=== PATIENT | male | born 1975 | race Caucasian/White ===

== ENCOUNTER 2022-09-20 10:27 | Observation (INO) ==
[2022-09-20] MEDS ORDERED: SODIUM CHLORIDE 0.9% 1000ML 1,000 ML IV ONE ×2 (10:53→12:08)
--- NOTE | 2022-09-20 10:53 | Emergency Department Note ---
Impression & Plan Seizure, Hypoxia ED Provider Note NAME: ROSANNA GUERRERO AGE: 46 SEX: M : 1975 ARRIVES VIA: Ambulance INFORMANT: Patient, EMS ED PROVIDER(S): José Miguel Chaney DO CHIEF COMPLAINT: Seizure HPI: Patient is a 46-year-old male who presents to the [facility] yesterday. He had a 6-minute episode of tonic-clonic seizure. He was given 2 mg of IM Ativan. Following this the seizure abated. He does have a history of epilepsy. He takes Keppra and he believes he has missed some doses of this. He is not too sure how many he missed. Notes he does have a headache. No neck pain. No chest pain or shortness of breath. No belly pain, nausea, vomiting, or diarrhea. He was brought in by EMS. History was obtained from nursing staff who spoke with EMS as well as the patient although he does not remember much. PAST MEDICAL HISTORY:See Below PAST SURGICAL HISTORY:See Below FAMILY HISTORY:See Below SOCIAL HISTORY:See Below HOME MEDICATIONS:See Below ALLERGIES:See Below VITALS:See Below PHYSICAL EXAMINATION: GENERAL: Sitting up in bed, sleeping on a nonrebreather but awakens to voice EYE EXAM: normal conjunctiva. PERRL and EOM's intact. OROPHARYNX: mucous membranes are moist NECK: supple, no nuchal rigidity, no adenopathy, non-tender LUNGS: Clear to auscultation. Normal chest wall mechanics HEART: no murmurs, S1 normal and S2 normal ABDOMEN: abdomen soft, non-tender, normo-active bowel sounds, no masses, no rebound or guarding. UPPER EXTREMITIES: upper extremities are grossly normal. LOWER EXTREMITIES: No pitting edema. NEURO EXAM: Normal sensorium, cranial nerves II-XII intact, normal speech, no weakness of arms, no weakness of legs. MEDICAL DECISION MAKING: Patient is a 46-year-old male who presents ER for above-stated complaint. IV was established blood work is obtained. External records were reviewed which were presented at bedside. Labs show no significant leukocytosis or anemia. BMP with LFTs bilirubin and troponin was negative. Lactate was initially elevated and trended down consistent with likely seizure as he did have a witnessed tonic-clonic episode which lasted for about 6 minutes. Abated with 2 mg IM of Ativan. Pro-Wan and lipase were normal. COVID was negative. He believes he has missed some doses of his seizure medications but is not 100% sure. Patient was given 2 g of Keppra. He did return to baseline. He was mildly hypoxic and we were able to titrate him off the nonrebreather down to 5 L via nasal cannula. He was slightly hypoxic in the upper 80s when awake and when sleeping he would dip down to the low 80s. EKG was nondiagnostic. CT head was negative. Patient was monitored closely discussed with the hospitalist for further evaluation management treatment. Do question aspiration. Triage Nursing notes reviewed. Limited review of prior medical records performed Vital Signs: reviewed and remarkable for no significant abnormalities Differential diagnosis: Differential diagnosis includes etiologies such as infection, hypoglycemia, electrolyte abnormalities, cardiac sources, intracerebral event, trauma, toxicologic, neurologic, as well as others were entertained. ER treatment provided: See below Diagnostics interpreted by me include EKG and cardiac monitoring as listed below: -Cardiac Monitoring: An order was placed for continuous cardiac monitoring. The monitor shows a rate of 90 with sinus rhythm. -ECG: Sinus rhythm rate 92 Normal axis No PVCs Septal Q waves -Laboratory studies:Interpreted by me as stated above in MDM and shown below. Imaging studies: Xrays: As interpreted by me: Portable AP upright 1 view of the chest shows no focal infiltrate CTs show: CT head was unremarkable Consultation(s): As described in MDM Procedures:none Critical Care: I have personally spent 31 minutes of critical care time in the direct management of this patient. This includes bedside care, interpretation of diagnostic studies, and testing, discussion with consultants, patient, and family members, and other required patient management activities. This 31 minutes is in excess of all separately billable procedures. Past Med/Surg History Medical History History of suicidal behavior MDD (major depressive disorder) Seizure Social History Smoking Status: Never smoker Feels Safe at Home: Yes Allergies Allergies Allergy/AdvReac Type Severity Reaction Status Date / Time attapulgite [From [place]] Allergy Unknown Unverified 09/20/22 12:47 grass pollen Allergy Unknown Unverified 09/20/22 12:47 Penicillins Allergy Unknown Unverified 09/20/22 12:47 strawberry Allergy Unknown Unverified 09/20/22 12:47 Home Meds Home Medications Medication Instructions Recorded Confirmed L.acidophilus-L.bulgar-B.bifid-S.thermoph 1 tab PO DAILY 09/20/22 09/20/22 1 billion cell-250 mg tablet (Radha-Bid) aripiprazole 15 mg tablet 15 mg PO DAILY 09/20/22 09/20/22 cholecalciferol (vitamin D3) 50 50 mcg PO BID 09/20/22 09/20/22 mcg (2,000 unit) capsule citalopram 40 mg tablet 40 mg PO DAILY 09/20/22 09/20/22 divalproex 500 mg tablet,extended 1,000 mg PO HS 09/20/22 09/20/22 release 24 hr fenofibrate 160 mg tablet 160 mg PO DAILY 09/20/22 09/20/22 fluticasone propionate 50 50 mcg intranasal DAILY 09/20/22 09/20/22 mcg/actuation nasal spray,suspension lacosamide 200 mg tablet 200 mg PO BID 09/20/22 09/20/22 levocarnitine 330 mg tablet 990 mg PO TID 09/20/22 09/20/22 levocetirizine 5 mg tablet 5 mg PO DAILY 09/20/22 09/20/22 lorazepam 0.5 mg tablet 0.5 mg PO BID 09/20/22 09/20/22 montelukast 10 mg tablet 10 mg PO DAILY 09/20/22 09/20/22 pravastatin 40 mg tablet 40 mg PO DAILY 09/20/22 09/20/22 quetiapine 400 mg tablet 400 mg PO DAILY 09/20/22 09/20/22 zonisamide 100 mg capsule 200 mg PO BID 09/20/22 09/20/22 Results & Data (ED) Vital Signs Vital Signs - 24 hr 09/20/22 10:35 09/20/22 10:35 09/20/22 11:08 Temperature 36.6 C Temperature Source Oral Pulse Rate 92 H Pulse Rate [Apical] 92 H Pulse Rate from SpO2 Sensor Respiratory Rate 20 20 Respiratory Effort / Characteristics Non-Labored Non-Labored Respiratory Depth Normal Normal Blood Pressure 129/86 Blood Pressure [Right Arm] 129/86 Blood Pressure Mean 100 Blood Pressure Mean [Right Arm] 100 Pulse Oximetry 96 96 94 Oxygen Delivery Method Room Air Room Air Non-rebreather Oxygen Flow Rate 15 Sepsis Recent Fever Within 48 Hours No Sepsis New/Unexplained Change in Mental Status N/A Sepsis Action Taken by Nursing No Action Required 09/20/22 11:16 09/20/22 12:13 09/20/22 11:45 Temperature Temperature Source Pulse Rate 100 H 87 Pulse Rate [Apical] Pulse Rate from SpO2 Sensor 87 Respiratory Rate 24 Respiratory Effort / Characteristics Respiratory Depth Blood Pressure 128/80 Blood Pressure [Right Arm] Blood Pressure Mean 96 Blood Pressure Mean [Right Arm] Pulse Oximetry 95 99 Oxygen Delivery Method Nasal Cannula Nasal Cannula Oxygen Flow Rate 6 6 Sepsis Recent Fever Within 48 Hours Sepsis New/Unexplained Change in Mental Status Sepsis Action Taken by Nursing 09/20/22 12:46 09/20/22 13:03 Temperature Temperature Source Pulse Rate 80 81 Pulse Rate [Apical] Pulse Rate from SpO2 Sensor 74 82 Respiratory Rate 23 23 Respiratory Effort / Characteristics Respiratory Depth Blood Pressure 122/89 124/86 Blood Pressure [Right Arm] Blood Pressure Mean 100 98 Blood Pressure Mean [Right Arm] Pulse Oximetry 96 99 Oxygen Delivery Method Nasal Cannula Nasal Cannula Oxygen Flow Rate 6 6 Sepsis Recent Fever Within 48 Hours Sepsis New/Unexplained Change in Mental Status Sepsis Action Taken by Nursing Laboratory Data 09/20/22 10:43 09/20/22 10:43 Lab Results 09/20/22 09/20/22 09/20/22 Range/Units 10:43 10:43 10:43 WBC 5.48 (4.8-10.8) K/ul RBC 5.51 (4.70-6.10) M/uL Hgb 16.9 (14.0-18.0) g/dl Hct 49.2 (42.0-52.0) % MCV 89.3 (80.0-100.0) fL MCH 30.7 (25.0-34.0) pg MCHC 34.3 (32.0-36.0) g/dL RDW Std Deviation 40.1 (36.4-46.3) fL RDW Coeff of Nabil 12.3 (11.5-14.5) % Plt Count 262 (130-400) K/uL MPV 9.2 L (9.4-12.4) fL Immature Gran % (Auto) 0.9 % Neut % (Auto) 60.3 % Lymph % (Auto) 28.5 % [place] % (Auto) 7.7 % Eos % (Auto) 1.5 % Baso % (Auto) 1.1 % Neut # (Auto) 3.31 (1.40-6.50) K/uL Lymph # (Auto) 1.56 (1.2-3.4) K/uL [place] # (Auto) 0.42 (0.11-0.59) K/uL Eos # (Auto) 0.08 (0-0.50) K/uL Baso # (Auto) 0.06 (0-0.2) K/uL Immature Gran # (Auto) 0.05 (0.01-0.20) K/uL Sodium 138 (136-145) mmol/L Potassium 3.6 (3.5-5.1) mmol/L Chloride 106 (98-107) mmol/L Carbon Dioxide 24 (21-32) mmol/L Anion Gap 8 (3-11) BUN 25 H (6-23) mg/dl Creatinine 1.25 (0.6-1.4) mg/dl Est Cr Clr Drug Dosing 82.5 ml/min Est GFR ( Amer) 79.5 ml/min Est GFR (Non-Af Amer) 68.6 ml/min BUN/Creatinine Ratio 20.0 (10-20) Glucose 144 H (70-99(Fasting)) mg/dl Lactate 3.3 H* (0.4-2.0) mmol/L Calcium 9.8 (8.6-10.3) mg/dl Total Bilirubin 0.5 (0.2-1.0) mg/dl AST 20 (13-39) U/L ALT 24 (7-52) U/L Alkaline Phosphatase 38 (34-104) U/L Troponin I High Sens (0-20) pg/ml Total Protein 7.3 (6.0-8.3) gm/dl Albumin 4.5 (3.4-5.0) gm/dl Globulin 2.8 (2.5-4.0) gm/dl Albumin/Globulin Ratio 1.6 (0.9-2) Lipase (11-82) U/L Procalcitonin (0-0.5) ng/ml SARS-CoV-2, RNA, NAAT (NEGATIVE) 09/20/22 09/20/22 09/20/22 Range/Units 10:43 10:43 11:07 WBC (4.8-10.8) K/ul RBC (4.70-6.10) M/uL Hgb (14.0-18.0) g/dl Hct (42.0-52.0) % MCV (80.0-100.0) fL MCH (25.0-34.0) pg MCHC (32.0-36.0) g/dL RDW Std Deviation (36.4-46.3) fL RDW Coeff of Nabil (11.5-14.5) % Plt Count (130-400) K/uL MPV (9.4-12.4) fL Immature Gran % (Auto) % Neut % (Auto) % Lymph % (Auto) % [place] % (Auto) % Eos % (Auto) % Baso % (Auto) % Neut # (Auto) (1.40-6.50) K/uL Lymph # (Auto) (1.2-3.4) K/uL [place] # (Auto) (0.11-0.59) K/uL Eos # (Auto) (0-0.50) K/uL Baso # (Auto) (0-0.2) K/uL Immature Gran # (Auto) (0.01-0.20) K/uL Sodium (136-145) mmol/L Potassium (3.5-5.1) mmol/L Chloride (98-107) mmol/L Carbon Dioxide (21-32) mmol/L Anion Gap (3-11) BUN (6-23) mg/dl Creatinine (0.6-1.4) mg/dl Est Cr Clr Drug Dosing ml/min Est GFR ( Amer) ml/min Est GFR (Non-Af Amer) ml/min BUN/Creatinine Ratio (10-20) Glucose (70-99(Fasting)) mg/dl Lactate (0.4-2.0) mmol/L Calcium (8.6-10.3) mg/dl Total Bilirubin (0.2-1.0) mg/dl AST (13-39) U/L ALT (7-52) U/L Alkaline Phosphatase (34-104) U/L Troponin I High Sens 5.2 (0-20) pg/ml Total Protein (6.0-8.3) gm/dl Albumin (3.4-5.0) gm/dl Globulin (2.5-4.0) gm/dl Albumin/Globulin Ratio (0.9-2) Lipase 46 (11-82) U/L Procalcitonin < 0.05 (0-0.5) ng/ml SARS-CoV-2, RNA, NAAT NEGATIVE (NEGATIVE) Administered Medications Lacosamide 200 mg/ Sodium (Chloride) 70 mls @ 140 mls/hr IV Q12H KASH Stop: 10/20/22 13:29 Last Infusion: 09/20/22 14:27 Dose: 0 mls/hr Documented By: Admin: 09/20/22 13:58 Dose: 140 mls/hr Documented By: JESSICA Discontinued Medications Sodium Chloride (Nss 1000ml) 1,000 mls @ 999 mls/hr IV .Q1H1M ONE Stop: 09/20/22 11:53 Last Infusion: 09/20/22 12:26 Dose: 0 mls/hr Documented By: Admin: 09/20/22 11:09 Dose: 999 mls/hr Documented By: JESSICA Sodium Chloride (Nss 1000ml) 1,000 mls @ 999 mls/hr IV .Q1H1M ONE Stop: 09/20/22 13:08 Last Infusion: 09/20/22 13:49 Dose: 0 mls/hr Documented By: Admin: 09/20/22 12:44 Dose: 999 mls/hr Documented By: JSESICA Levetiracetam 2,000 mg/ Sodium (Chloride) 270 mls @ 999 mls/hr IV NOW STA Stop: 09/20/22 12:24 Last Infusion: 09/20/22 13:04 Dose: 0 mls/hr Documented By: Admin: 09/20/22 12:43 Dose: 999 mls/hr Documented By: JESSICA Imaging Data Radiologist's Impression: Chest X-Ray 09/20/22 10:53 XR chest 1V portable CLINICAL HISTORY: Chest pain, nonspecific COMPARISON STUDY: No previous studies for comparison. FINDINGS: This study is mildly compromised given difficulty positioning. There is relative lucency of the left upper lung. This could be technical. Mild interstitial thickening within the the right lung is noted. Cardiac size is normal. There is no evidence for pulmonary edema. No pneumothorax or pleural effusion. IMPRESSION: Mild asymmetric interstitial thickening within the right lung. This may be technical. However, an infectious process or less likely asymmetric interstitial pulmonary edema could appear similar. ACT 112: Negative or not required by law. Electronically signed by: Dick Dyer M.D. 09/20/2022 11:[address] 09/20/22 10:53 CT OF THE HEAD WITHOUT CONTRAST CLINICAL HISTORY: Headache. COMPARISON STUDY: No previous studies for comparison. CT DOSE: 547.75 mGy.cm TECHNIQUE: Helical axial images of the head were obtained without IV contrast. Automated exposure control was utilized for the study. A dose lowering technique was utilized adhering to the principles of ALARA. FINDINGS: No acute intracranial hemorrhage, midline shift or mass effect is present. There is ossification along the falx. The ventricular system is unremarkable. There is possible wolff matter heterotopia along the occipital horns of the lateral ventricles. The basal cisterns are patent. No extra-axial collections are present. There are no findings to suggest acute dural sinus thrombosis or acute territorial infarct. No calvarial fracture is present. Left maxillary sinus mucous retention cyst. IMPRESSION: 1. No acute intracranial findings. 2. 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 ACT 112: Negative or not required by law. Electronically signed by: Dick Dyer M.D. 09/20/2022 11:56 AM Discharge Plan Visit Data Chief Complaint: Seizure ED Provider: José Miguel Chaney Discharge Problem: Seizure, Hypoxia Patient Disposition: Admitted As Inpatient Discharge Instructions Interventions: ED Discharge Assessment Last Done: 09/20/22 14:15
[2022-09-20 11:05] LABS: Basophils # (auto) 0.06 K/uL (0-0.2); Basophils % (auto) 1.1 %; Eosinophils # (auto) 0.08 K/uL (0-0.50); Eosinophils % (auto) 1.5 %; Hematocrit (blood only) 49.2 % (42.0-52.0); Hemoglobin 16.9 g/dl (14.0-18.0); Immature Granulocytes # (auto) 0.05 K/uL (0.01-0.20); Immature Granulocytes % (auto) 0.9 %; Lymphocytes # (auto) 1.56 K/uL (1.2-3.4); Lymphocytes % (auto) 28.5 %; Mean Corpuscular Hemoglobin 30.7 pg (25.0-34.0); Mean Corpuscular Hgb Conc 34.3 g/dL (32.0-36.0); Mean Corpuscular Volume 89.3 fL (80.0-100.0); Mean Platelet Volume 9.2 fL (9.4-12.4); Monocytes # (auto) 0.42 K/uL (0.11-0.59); Monocytes % (auto) 7.7 %; Neutrophils # (auto) 3.31 K/uL (1.40-6.50); Neutrophils % (auto) 60.3 %; Platelet Count 262 K/uL (130-400); RDW Coefficient of Variation 12.3 % (11.5-14.5); RDW Standard Deviation 40.1 fL (36.4-46.3); Red Blood Count 5.51 M/uL (4.70-6.10); White Blood Count 5.48 K/ul (4.8-10.8)
--- NOTE | 2022-09-20 11:17 | XRay Report ---
XR chest 1V portable CLINICAL HISTORY: Chest pain, nonspecific COMPARISON STUDY: No previous studies for comparison. FINDINGS: This study is mildly compromised given difficulty positioning. There is relative lucency of the left upper lung. This could be technical. Mild interstitial thickening within the the right lung is noted. Cardiac size is normal. There is no evidence for pulmonary edema. No pneumothorax or pleur al effusion. IMPRESSION: Mild asymmetric interstitial thickening within the right lung. This may be technical. [place], an infectious process or less likely asymmetric interstitial pulmonary edema could appear [place]. ACT 112: Negative or not required by law. Electronically signed by: Dick Dyer M.D. 09/20/2022 11:15 AM
[2022-09-20 11:27] LABS: Albumin Globulin Ratio 1.6 (0.9-2); Albumin Level 4.5 gm/dl (3.4-5.0); Bilirubin,Total 0.5 mg/dl (0.2-1.0); Calcium 9.8 mg/dl (8.6-10.3); Creatinine Clr Calc Pharmacy 82.5 ml/min; Est GFR (African American) 79.5 ml/min; Est GFR (Non-African American) 68.6 ml/min; Globulin 2.8 gm/dl (2.5-4.0); Potassium 3.6 mmol/L (3.5-5.1); Total Protein 7.3 gm/dl (6.0-8.3)
--- NOTE | 2022-09-20 11:58 | CT Scan Report ---
CT OF THE HEAD WITHOUT CONTRAST CLINICAL HISTORY: Headache. COMPARISON STUDY: No previous studies for comparison. CT DOSE: 547.75 mGy.cm TECHNIQUE: Helical axial images of the head were obtained without IV contrast. Automated exposure con trol was utilized for the study. A dose lowering technique was utilized adhering to the principles o f ALARA. FINDINGS: No acute intracranial hemorrhage, midline shift or mass effect is present. There is ossific ation along the falx. The ventricular system is unremarkable. There is possible wolff matter heterotop ia along the occipital horns of the lateral ventricles. The basal cisterns are patent. No extra-axial collections are present. There are no findings to suggest acute dural sinus thrombosis or acute terr itorial infarct. No calvarial fracture is present. Left maxillary sinus mucous retention cyst. IMPRESSION: 1. No acute intracranial findings. 2. 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 ACT 112: Negative or not required by law. Electronically signed by: Dick Dyer M.D. 09/20/2022 11:56 AM
[2022-09-20 12:16] LABS: Troponin I High Sensitivity 5.2 pg/ml (0-20)
--- NOTE | 2022-09-20 12:25 | History & Physical Report ---
Date of Service September 20, 2022 Assessment & Plan (1) Seizure: Plan: Seizure, acute with history of epilepsy Patient follows with [facility] neurolog[facility]. Records pending Medications reconciled as able with the [facility]. Patient recently with Vimpat increased to 200 mg twice daily, Zonegran 200 mg twice daily, and Depakote ER 1000 mg at bedtime. He arrived to their facility yesterday, had not taken meds since Tuesday but was only able to take Depakote in the evening Patient reports has had around a seizure a month more recently Patient was admitted to the [facility] for severe depression with suicidality, patient denies suicidality today. MDD management as otherwise noted Depakote level pending, Zonegran level pending We will resume Zonegran and Vimpat Initially loaded with Keppra in the ER. 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 Received 2 L of NSS in ER, will defer additional. If not tolerating p.o. by this even then add Plasma-Lyte 100 cc/h supplement. Pulmonary edema not noted on x-ray, no history of heart failure CThead: 1. No acute intracranial findings.2. 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 EKG: Normal sinus rhythm, QTc 452, no ST segment changes Given CT above evidence of deformity consistent with epilepsy. Will defer MRI and attempt to obtain records from [facility]. If continued seizures/breakthrough seizures then we will repeat imaging and consult neurology at that time. Otherwise will restart medications, obtain levels and follows for stability Acute hypoxic respiratory failure Reportedly no oxygen requirement Denies fever, chills, sweats, cough. Denies baseline lung disease ? Sedation in the setting of seizure/postictal state and Ativan administration CXR Mild asymmetric interstitial thickening within the right lung. This may be technical. However, an infectious process or less likely asymmetric interstitial pulmonary edema could appear similar. Pro-Wan pending. If persistent hypoxia, febrile, elevated procal or other concern for clinical pneumonia continues will start Rocephin for CAP Bipolar disorder, major depressive disorder, with suicidality Patient denies active SI/HI at admission, but was [facility] prior with suicidality We will keep on suicide precautions at this time, behavioral health liaison consulted Right wrist with surface transverse cut, no overlying signs of cellulitis and no vascular compromise. Does not require suturing. Tdap status unknown, attempted to clarify from records, if gets from [place] do not confirm Tdap recommend giving a additional dose while inpatient DVT prophylaxis: SCDs Diet: Regular, hold for somnolence/sedation Disposition: PCU given history of multiple breakthrough seizures requiring rescue medication and monitoring while sedated CODE STATUS: Full code per patient (2) MDD (major depressive disorder): (3) History of suicidal behavior: History of Present Illness Primary Care Provider: Kevin Edge MD Dada is a 46-year-old male who presented to the [facility] yesterday and while at their facility had a 6-minute tonic-clonic seizure which was aborted with 2 mg of IM Ativan. Is a past medical history of epilepsy. Previously on Keppra, and missed several doses of but is not sure how many Pt is oriented to year 6 minutes x1 ativan 0940. "on depakote and a couple others. " Sees [facility] Dr. Santos Last seizure was a month ago. "Every once a while." Took his seizure medicines this week, thinks he took them last on Tuesday morning Was recently in the [facility]. Was there for depression. Denies SI/HI. Takes seroquel/abilify Sees Dr. Edge with [facility] Medical History: Reviewed Medications: Reviewed Surgical History: Reviewed Family history: Reviewed Allergies: Reviewed Social History: Rare etoh use. No marijuana. +cigarette use. 1.5 ppd. Code Status: Per external medication reconciliation has had medications filled from [facility], Olegario Edge, [facility] Levocarnitine 330 mg (? For valproate induced hepatotoxicity?) Citalopram 40 mg daily Pravastatin 40 mg daily Zonisamide 100 mg capsules 112 prescribed for 28-day supply Lorazepam 0.5 mg 56 prescribed for 28-day supply Divalprox/Valproic Sodium 100 mg 56 prescribed for 28-day supply Montelukast 10 mg daily Aripiprazole 15 mg daily Fenofibrate 160 mg daily Seroquel 400 mg daily Levocetirizine 5 mg daily Lacosamide 200 mg 56 tablets prescribed for 28-day supply by [address] All above scripts were last filled 09/02/2022. Per [facility] review: Aripiprazole 15 mg once daily for depression on hold Atorvastatin 40 mg Celexa Arrived at the [facility] yesterday evening 2:12pm HS on 09/19. Was living at nursing [facility] [phone]. [facility]. Corrie Moody. Suicidality - Vimpat recently increased to 200mg BID - Zonegran 200mg BID - Ativan 0.5 PO KASH BID Depakote ER 1000mg bedtime Aripiprazole was held, was going to resume 09/21 - Only took depakote last night Previously patient had been prescribed trazodone 50 mg, Synthroid 75 mg, and hydrocodoneacetaminophen these were last filled in 2021 without a recent for Allergies Allergy/AdvReac Type Severity Reaction Status Date / Time attapulgite [From Yesy] Allergy Unknown Unverified 09/20/22 12:47 grass pollen Allergy Unknown Unverified 09/20/22 12:47 Penicillins Allergy Unknown Unverified 09/20/22 12:47 strawberry Allergy Unknown Unverified 09/20/22 12:47 Home Medications Medication Instructions Recorded Confirmed Type L.acidophilus-L.bulgar-B.bifid-S.thermoph 1 tab PO DAILY 09/20/22 09/20/22 History 1 billion cell-250 mg tablet (Radha-Bid) aripiprazole 15 mg tablet 15 mg PO DAILY 09/20/22 09/20/22 History cholecalciferol (vitamin D3) 50 50 mcg PO BID 09/20/22 09/20/22 History mcg (2,000 unit) capsule citalopram 40 mg tablet 40 mg PO DAILY 09/20/22 09/20/22 History divalproex 500 mg tablet,extended 1,000 mg PO HS 09/20/22 09/20/22 History release 24 hr fenofibrate 160 mg tablet 160 mg PO DAILY 09/20/22 09/20/22 History fluticasone propionate 50 50 mcg intranasal DAILY 09/20/22 09/20/22 History mcg/actuation nasal spray,suspension lacosamide 200 mg tablet 200 mg PO BID 09/20/22 09/20/22 History levocarnitine 330 mg tablet 990 mg PO TID 09/20/22 09/20/22 History levocetirizine 5 mg tablet 5 mg PO DAILY 09/20/22 09/20/22 History lorazepam 0.5 mg tablet 0.5 mg PO BID 09/20/22 09/20/22 History montelukast 10 mg tablet 10 mg PO DAILY 09/20/22 09/20/22 History pravastatin 40 mg tablet 40 mg PO DAILY 09/20/22 09/20/22 History quetiapine 400 mg tablet 400 mg PO DAILY 09/20/22 09/20/22 History zonisamide 100 mg capsule 200 mg PO BID 09/20/22 09/20/22 History Past Med/Surg History Medical History History of suicidal behavior MDD (major depressive disorder) Seizure Social History Smoking Status: Never smoker Feels Safe at Home: Yes Physical Exam Physical Exam: General: Somnolent, but arouses easily. Oriented to name, year and hospital. Reorients to [place] easily, initially thinks he is in [place] HEENT: Atraumatic, normocephalic. Pupils equal and reactive to light. Slight scleral injection of the left eye without discharge/purulence. Vision and hearing grossly intact Pulm: Diminished but grossly CTAB A&P. -wheezes, -rales, -rhonchi. Symmetrical chest rise. No increased work of breathing. No respiratory distress. Cardiac: RRR, -mrg. Radial pulses intact and symmetrical. Abdominal: Nontender, nondistended, soft. BS present. Extremities: Right palmar wrist with superficial transverse cut, radial and ulnar pulse intact without compromise, cap refill in hands brisk. Well-healing, no surrounding erythema/warmth/discharge. No evidence of cellulitis. Left wrist intact. 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 Sensation to soft touch intact in hands and feet bilaterally Results & Data Results & Data Vital Signs (Past 12 Hours) Vital Signs Temp Pulse Pulse Resp BP BP Pulse Ox 09/20/22 12:13 95 09/20/22 11:16 100 H 09/20/22 11:08 94 09/20/22 10:35 92 H 20 129/86 96 09/20/22 10:35 36.6 C 92 H 20 129/86 96 O2 Del Method O2 Flow Rate 09/20/22 12:13 Nasal Cannula 6 09/20/22 11:16 09/20/22 11:08 Non-rebreather 15 09/20/22 10:35 Room Air 09/20/22 10:35 Room Air PG Care Time/CCT Total # of Minutes Spent Total Time Spent with Patient: Total time spent is greater than 50% in coordination of care (as documented) at patient's floor/unit and/or counseling patient: Coding Level of Care Code 59294 INT INP/OBS CARE 3/75MIN Diagnoses Seizure R56.9 MDD (major depressive disorder) F32.9 History of suicidal behavior Z91.51
[2022-09-20] MEDS ORDERED: ZONISAMIDE 100 MG CAPSULE PO ONE (13:15)
[2022-09-20] MEDS: LACOSAMIDE 200 MG in SODIUM CHLORIDE 0.9% 50 ML IV SCH (13:58)
[2022-09-20] MEDS ORDERED: LEVOCARNITINE 330 MG PO SCH (16:58)
[2022-09-20] MEDS ORDERED: LORazepam 1 MG TAB PO PRN (16:58)
[2022-09-20] MEDS ORDERED: LACOSAMIDE 200 MG in SODIUM CHLORIDE 0.9% 50 ML IV SCH (16:58)
[2022-09-20] MEDS ORDERED: ACETAMINOPHEN 325 MG TAB PO PRN (16:58)
[2022-09-20] MEDS: VALPROATE SOD 250 MG in DEXTROSE 5% 50 ML IV SCH ×2 (17:40→22:31)
[2022-09-20] MEDS: ZONISAMIDE 100 MG CAPSULE PO SCH (21:10)
[2022-09-20] MEDS: levOCARNitine (with sugar) 100 MG/ML SOLUTION PO SCH (21:10)
[2022-09-20] MEDS: LORazepam 0.5 MG TAB PO SCH (21:11)
[2022-09-21] MEDS: LACOSAMIDE 200 MG in SODIUM CHLORIDE 0.9% 50 ML IV SCH ×3 (01:14→16:18)
[2022-09-21] MEDS: VALPROATE SOD 250 MG in DEXTROSE 5% 50 ML IV SCH ×3 (05:18→17:21)
[2022-09-21] MEDS: ARIPiprazole 15 MG TAB PO SCH (06:31)
[2022-09-21] MEDS: PRAVASTATIN SOD 40 MG TAB PO SCH (06:31)
[2022-09-21] MEDS: CITALOPRAM 40 MG TAB PO SCH (07:50)
[2022-09-21] MEDS: MONTELUKAST SODIUM 10 MG TABLET PO SCH (07:50)
[2022-09-21] MEDS: LORazepam 0.5 MG TAB PO SCH ×2 (07:54→20:37)
[2022-09-21 08:27] LABS: Basophils # (auto) 0.07 K/uL (0-0.2); Eosinophils # (auto) 0.16 K/uL (0-0.50); Eosinophils % (auto) 2.3 %; Hematocrit (blood only) 43.2 % (42.0-52.0); Hemoglobin 14.8 g/dl (14.0-18.0); Immature Granulocytes # (auto) 0.05 K/uL (0.01-0.20); Immature Granulocytes % (auto) 0.7 %; Lymphocytes # (auto) 3.17 K/uL (1.2-3.4); Lymphocytes % (auto) 44.8 %; Mean Corpuscular Hemoglobin 31.3 pg (25.0-34.0); Mean Corpuscular Hgb Conc 34.3 g/dL (32.0-36.0); Mean Corpuscular Volume 91.3 fL (80.0-100.0); Mean Platelet Volume 9.5 fL (9.4-12.4); Monocytes # (auto) 0.56 K/uL (0.11-0.59); Monocytes % (auto) 7.9 %; Neutrophils # (auto) 3.06 K/uL (1.40-6.50); Neutrophils % (auto) 43.3 %; Platelet Count 240 K/uL (130-400); RDW Coefficient of Variation 12.3 % (11.5-14.5); RDW Standard Deviation 41.1 fL (36.4-46.3); Red Blood Count 4.73 M/uL (4.70-6.10); White Blood Count 7.07 K/ul (4.8-10.8)
[2022-09-21 08:39] LABS: Albumin Globulin Ratio 1.5 (0.9-2); Albumin Level 3.7 gm/dl (3.4-5.0); BUN Creatinine Ratio 17.8 (10-20); Bilirubin,Total 0.5 mg/dl (0.2-1.0); Calcium 8.6 mg/dl (8.6-10.3); Creatinine Clr Calc Pharmacy 86.9 ml/min; Est GFR (African American) 85.3 ml/min; Est GFR (Non-African American) 73.6 ml/min; Globulin 2.5 gm/dl (2.5-4.0); Total Protein 6.2 gm/dl (6.0-8.3)
--- NOTE | 2022-09-21 08:51 | Electrocardiogram Report ---
Test Reason : Blood Pressure : / mmHG Vent. Rate : 092 BPM Atrial Rate : 092 BPM P-R Int : 190 ms QRS Dur : 090 ms QT Int : 366 ms P-R-T Axes : 077 041 -06 degrees QTc Int : 452 ms Normal sinus rhythm Septal infarct , age undetermined Abnormal ECG No previous ECGs available Confirmed by Will Ochoa ([id number]) on 09/21/2022 8:50:53 AM Referred By: Confirmed By:Will Ochoa
[2022-09-21] MEDS: QUEtiapine FUMARATE 200 MG TAB PO SCH (09:02)
[2022-09-21] MEDS: levOCARNitine (with sugar) 100 MG/ML SOLUTION PO SCH ×3 (09:03→20:33)
--- NOTE | 2022-09-21 12:48 | Hospitalist Progress Note ---
Date of Service September 21, 2022 Assessment & Plan (1) Seizure: Plan: Seizure, acute with history of epilepsy Patient follows with [facility]. -Patient [place] [facility] where he was taken on account of sucidal ideation, but started having multiple seizures Patient recently with Vimpat increased to 200 mg twice daily, Zonegran 200 mg twice daily, and Depakote ER 1000 mg at bedtime. According to sources, he did not take all his seizure medications upon arrival [place] [facility], only taking Depakote Patient reports has had around a seizure a month more recently Patient was admitted to the [facility] for severe depression with suicidality, patient denies suicidality today. Zonegran and Vimpat have been resumed Initially loaded with Keppra in the ER. -CT head did not show any acute pathology -No mores seizures overnight (2) History of suicidal behavior: Plan: Bipolar disorder, major depressive disorder, with suicidality Patient denies active SI/HI at admission, but was admitted to [facility] day prior with suicidality We will keep on suicide precautions at this time, behavioral health liaison consulted Right wrist with surface transverse cut, no overlying signs of cellulitis and no vascular compromise. Does not require suturing. Tdap status unknown, attempted to clarify from records, if gets from [place] do not confirm Tdap recommend giving a additional dose while inpatient -Patient to be evaluated by Psych before he goes back to the [facility] [place] (3) Hypoxia: Plan: Now resolved (4) MDD (major depressive disorder): Plan DVT prophylaxis: SCDs Diet: Regular, hold for somnolence/sedation Disposition: Hopefully d/c back [place] [facility] after evaluation by Psych CODE STATUS: Full code per patient Admission and Anticipated Discharge Date Admission Date: September 20, 2022 Subjective patient seen and examined, lying quietly in bed, awake and alert, tolerating regular diet Review of Systems Review of Systems: All systems reviewed are negative, apart from the ones contained in the history. Physical Exam Physical Exam: The patient is awake, alert , lethargic HEENT--PERRL, EOMI, mucous membranes and oropharynx mildly dry Neck--supple. No JVD. No bruits. Thyroid normal, trachea midline, no adenopathy. Heart--normal S1 and S2. No murmurs, rubs or gallops. Lungs--clear bilaterally, no respiratory distress, no accessory muscle use. Abdomen--normal bowel sounds and soft. Mild epigastric and left sided abdominal pain Extremities--no cyanosis or clubbing. No edema. Dermatologic--normal skin turgor, normal color, no abnormal lymph nodes, no rash. Neurologic--cranial nerves II through XII grossly intact. Rheumatologic--normal range of motion. Psychiatric--normal affect. Results & Data Results & Data Vital Signs (Past 12 Hours) Vital Signs Temp Pulse Pulse Resp BP BP Pulse Ox 09/21/22 11:49 97.7 F 90 20 120/76 92 09/21/22 07:00 97.5 F L 68 18 107/71 91 09/21/22 05:28 97.9 F 67 14 98/63 L 95 09/21/22 02:00 97.9 F 72 20 105/71 96 O2 Del Method O2 Flow Rate 09/21/22 11:49 Nasal Cannula 2 09/21/22 07:00 Nasal Cannula 2 09/21/22 05:28 Nasal Cannula 3 09/21/22 02:00 Nasal Cannula 2 PG Care Time/CCT Total # of Minutes Spent Total Time Spent with Patient: Total time spent is greater than 50% in coordination of care (as documented) at patient's floor/unit and/or counseling patient: Coding Level of Care Code 37869 SUB INP/OBS CARE 2/35MIN Diagnoses Seizure R56.9 History of suicidal behavior Z91.51 Hypoxia R09.02 MDD (major depressive disorder) F32.9 Time Spent (min) 35
[2022-09-21] MEDS: ZONISAMIDE 100 MG CAPSULE PO SCH ×2 (13:34→20:33)
--- NOTE | 2022-09-21 15:01 | Psychiatric Consultation ---
Date of Consultation September 21, 2022 Impression / Recommendations Impression 46 yo man who resides in a snf for individuals with developmental disabilities and with a history of epilepsy and depression admitted from a local inpatient psychiatric facility following a seizure. From a disposition standpoint he was a voluntary patient at the [facility] and cannot return there and does not wish for further inpatient psychiatric treatment there or at another facility. Rather he is now consistently denying SI, future oriented, can speak to deterrents and wants to return to his supportive snf. Acute risk of self-harm is deemed to be low given denial of SI, can speak to supports, has outpatient providers, lives in a supportive environment to which he is welcome to return to and is future-oriented with strong deterrents. Chronic risk is moderate given history of multiple prior psychiatric hospitalizations but also without any prior attempts. He likes his current psychiatric medications and is not experiencing any side effects so would continue Abilify 15mg HS, Celexa 40mg qd, Ativan 0.5mg BID and Seroquel 400mg daily as ordered. (1) Adjustment disorder with depressed mood in remission: (2) Developmental disability: Plan -Discontinue 1-on-1 -Safe for discharge from psychiatric standpoint once medically stable -Recommend CM assistance with determining transportation options back to [place] and coordinating return of his personal belongings from the [facility] -Continue psychiatric medications as ordered Psych History Identifying Data 46 [facility] with a history of depression, epilepsy, and suspected developmental disorder admitted medically from the [facility] psychiatry facility for a seizure. Psychiatry consulted for disposition and risk assessment recommendations. Chief Complaint "I'm good, I want to go home". History of Present Illness Dada describes worsening SI a few days ago with thoughts to cut his wrist, leading to admission to the [facility] inpatient psychiatry as a voluntary patient for treatment. He was there two days before having a seziure and being transferred to [facility]. [place] declines having him return and he doesn't feel he needs or wants any further inpatient psychiatric treatment. He states his mood is "I'm good" and adamantly denies SI. 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 He lives in a snf, [facility], which per their website states they assist "adults with developmental disabilities" and he loves living there. States that if he were to develop SI again in the future he would "talk to staff and friends" at [facility]. States he likes his current psychiatric medications and denies any issues with them or side effects. He endorses psychiatric history of depression. Denies any prior suicide attempts or self-harm episodes. Has been hospitalized over his life at multiple psychiatric facilities including [facility] "and a couple other ones". He has an outpatient psychiatrist and director of casework services but he cannot recall specifics regarding their names. He denies any access to guns. Allergies Allergy/AdvReac Type Severity Reaction Status Date / Time attapulgite [From Yesy] Allergy Unknown Unverified 09/20/22 12:47 grass pollen Allergy Unknown Unverified 09/20/22 12:47 Penicillins Allergy Unknown Unverified 09/20/22 12:47 strawberry Allergy Unknown Unverified 09/20/22 12:47 Home Medications Medication Instructions Recorded Confirmed Type L.acidophilus-L.bulgar-B.bifid-S.thermoph 1 tab PO DAILY 09/20/22 09/20/22 History 1 billion cell-250 mg tablet (Radha-Bid) aripiprazole 15 mg tablet 15 mg PO DAILY 09/20/22 09/20/22 History cholecalciferol (vitamin D3) 50 50 mcg PO BID 09/20/22 09/20/22 History mcg (2,000 unit) capsule citalopram 40 mg tablet 40 mg PO DAILY 09/20/22 09/20/22 History divalproex 500 mg tablet,extended 1,000 mg PO HS 09/20/22 09/20/22 History release 24 hr fenofibrate 160 mg tablet 160 mg PO DAILY 09/20/22 09/20/22 History fluticasone propionate 50 50 mcg intranasal DAILY 09/20/22 09/20/22 History mcg/actuation nasal spray,suspension lacosamide 200 mg tablet 200 mg PO BID 09/20/22 09/20/22 History levocarnitine 330 mg tablet 990 mg PO TID 09/20/22 09/20/22 History levocetirizine 5 mg tablet 5 mg PO DAILY 09/20/22 09/20/22 History lorazepam 0.5 mg tablet 0.5 mg PO BID 09/20/22 09/20/22 History montelukast 10 mg tablet 10 mg PO DAILY 09/20/22 09/20/22 History pravastatin 40 mg tablet 40 mg PO DAILY 09/20/22 09/20/22 History quetiapine 400 mg tablet 400 mg PO DAILY 09/20/22 09/20/22 History zonisamide 100 mg capsule 200 mg PO BID 09/20/22 09/20/22 History Patient History Medical History History of suicidal behavior MDD (major depressive disorder) Seizure Social History Smoking Status: Never smoker Preferred Language: Turkmen Communication Ability: Effective 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: No Current Living Situation: Boarding Home Feels Safe at Home: Yes Assistive Devices: None Physical Exam Psychiatric: Orientation: alert, oriented to person, oriented to place and cooperative Apperance: appropriately dressed and appropriately groomed Eye Contact: good eye contact Motor Behavior: no abnormal motor movements Speech: + abnormal rate/rhythm/volume of speech (slight dysarthria ) Affect: euthymic affect Mood: no depressed mood and no anxious mood Thought Process: clear/coherent thought process and + concrete thought process Thought Content: reality based without delusions Suicidal Thoughts: denies suicidal thoughts, denies suicidal plan and denies suicidal intent Homicidal Thoughts: denies homicidal thoughts Hallucinations: no auditory hallucinations and no visual hallucinations Cognition: recent memory grossly intact, remote memory grossly intact, attention grossly intact and language grossly intact Estimated Intelligence: + below average estimated intelligence Insight: + fair insight Judgment: + fair judgement Vital Signs (Past 24 Hours): Last Vital Signs Temp 36.5 C 09/21/22 11:49 Pulse 90 09/21/22 11:49 Resp 20 09/21/22 11:49 BP 120/76 09/21/22 11:49 Pulse Ox 92 09/21/22 11:49 O2 Del Method Nasal Cannula 09/21/22 11:49 O2 Flow Rate 2 09/21/22 11:49 Review of Systems All systems reviewed & are unremarkable except as noted in HPI & below Results & Data (PSY) Medications Administered Aripiprazole (Aripiprazole 15 Mg Tab) 15 mg PO DAILY@0700 KASH Stop: 10/21/22 06:59 Last Admin: 09/21/22 06:31 Dose: 15 mg Documented By: [id number] Citalopram Hydrobromide (Citalopram 40 Mg Tab) 40 mg PO DAILY KASH Stop: 10/21/22 08:59 Last Admin: 09/21/22 07:50 Dose: 40 mg Documented By: ANN Lacosamide 200 mg/ Sodium (Chloride) 70 mls @ 140 mls/hr IV Q12H KASH Stop: 10/20/22 13:29 Last Infusion: 09/21/22 01:49 Dose: 0 mls/hr Documented By: [id number] Admin: 09/21/22 01:14 Dose: 140 mls/hr Documented By: [id number] Infusion: 09/20/22 14:27 Dose: 0 mls/hr Documented By: Admin: 09/20/22 13:58 Dose: 140 mls/hr Documented By: JESSICA Valproic Acid 250 mg/ Dextrose 52.5 mls @ 55 mls/hr IV Q6H KASH Stop: 10/20/22 17:14 Last Infusion: 09/21/22 14:12 Dose: 0 mls/hr Documented By: Admin: 09/21/22 13:20 Dose: 55 mls/hr Documented By: Infusion: 09/21/22 06:27 Dose: 0 mls/hr Documented By: [id number] Admin: 09/21/22 05:18 Dose: 55 mls/hr Documented By: [id number] Infusion: 09/20/22 23:31 Dose: 0 mls/hr Documented By: [id number] Admin: 09/20/22 22:31 Dose: 55 mls/hr Documented By: [id number] Infusion: 09/20/22 18:47 Dose: 0 mls/hr Documented By: Admin: 09/20/22 17:40 Dose: 55 mls/hr Documented By: [id number] Levocarnitine (Levocarnitine (With Sugar) 100 Mg/Ml Solution) 990 mg PO TID KASH Stop: 10/20/22 20:59 Last Admin: 09/21/22 14:03 Dose: 990 mg Documented By: Admin: 09/21/22 09:03 Dose: 990 mg Documented By: Admin: 09/20/22 21:10 Dose: 990 mg Documented By: [id number] Lorazepam (Lorazepam 0.5 Mg Tab) 0.5 mg PO BID [facility] Stop: 10/20/22 20:59 Last Admin: 09/21/22 07:54 Dose: 0.5 mg Documented By: Admin: 09/20/22 21:11 Dose: 0.5 mg Documented By: [id number] Montelukast Sodium (Montelukast Sodium 10 Mg Tablet) 10 mg PO DAILY KASH Stop: 10/21/22 08:59 Last Admin: 09/21/22 07:50 Dose: 10 mg Documented By: ANN Pravastatin Sodium (Pravastatin Sod 40 Mg Tab) 40 mg PO DAILY@0700 [facility] Stop: 10/21/22 06:59 Last Admin: 09/21/22 06:31 Dose: 40 mg Documented By: [id number] Quetiapine Fumarate (Quetiapine Fumarate 200 Mg Tab) 400 mg PO DAILY [facility] Stop: 10/21/22 08:59 Last Admin: 09/21/22 09:02 Dose: 400 mg Documented By: ANN Zonisamide (Zonisamide 100 Mg Capsule) 200 mg PO DAILY@0700,1999 [facility] Stop: 10/20/22 19:59 Last Admin: 09/21/22 13:34 Dose: 200 mg Documented By: Admin: 09/20/22 21:10 Dose: 200 mg Documented By: [id number] Coding Level of Care Code 92993 IN/OBS CONSULT LVL 3,45M Diagnoses Adjustment disorder with depressed mood in remission F43.21 Developmental disability F89 Time Spent (min) 50
--- NOTE | 2022-09-21 20:06 | Communication Note ---
Date of Service: September 21, 2022 1:1 no longer needed, can be d/c'd. Resident Activity Tracking Resident Involvement: Resident Care Provided Care Provided: Adult [facility] Medicine
[2022-09-22] MEDS: VALPROATE SOD 250 MG in DEXTROSE 5% 50 ML IV SCH ×3 (00:34→12:20)
[2022-09-22] MEDS: LACOSAMIDE 200 MG in SODIUM CHLORIDE 0.9% 50 ML IV SCH (04:44)
[2022-09-22] MEDS: ARIPiprazole 15 MG TAB PO SCH (06:11)
[2022-09-22] MEDS: PRAVASTATIN SOD 40 MG TAB PO SCH (06:11)
[2022-09-22 07:44] LABS: Hematocrit (blood only) 44.6 % (42.0-52.0); Mean Corpuscular Hemoglobin 30.7 pg (25.0-34.0); Mean Corpuscular Hgb Conc 33.6 g/dL (32.0-36.0); Mean Corpuscular Volume 91.4 fL (80.0-100.0); Mean Platelet Volume 9.3 fL (9.4-12.4); Platelet Count 248 K/uL (130-400); RDW Coefficient of Variation 12.1 % (11.5-14.5); RDW Standard Deviation 40.4 fL (36.4-46.3); Red Blood Count 4.88 M/uL (4.70-6.10); White Blood Count 6.64 K/ul (4.8-10.8)
[2022-09-22] MEDS: levOCARNitine (with sugar) 100 MG/ML SOLUTION PO SCH ×2 (07:54→14:24)
[2022-09-22] MEDS: LORazepam 0.5 MG TAB PO SCH (07:54)
[2022-09-22] MEDS: QUEtiapine FUMARATE 200 MG TAB PO SCH (07:54)
[2022-09-22] MEDS: MONTELUKAST SODIUM 10 MG TABLET PO SCH (07:54)
[2022-09-22] MEDS: ZONISAMIDE 100 MG CAPSULE PO SCH (07:54)
[2022-09-22] MEDS: CITALOPRAM 40 MG TAB PO SCH (07:55)
[2022-09-22 08:06] LABS: Basophils # (auto) 0.09 K/uL (0-0.2); Basophils % (auto) 1.4 %; Eosinophils # (auto) 0.19 K/uL (0-0.50); Eosinophils % (auto) 2.9 %; Immature Granulocytes # (auto) 0.08 K/uL (0.01-0.20); Immature Granulocytes % (auto) 1.2 %; Lymphocytes # (auto) 3.34 K/uL (1.2-3.4); Lymphocytes % (auto) 50.3 %; Monocytes # (auto) 0.62 K/uL (0.11-0.59); Monocytes % (auto) 9.3 %; Neutrophils # (auto) 2.32 K/uL (1.40-6.50); Neutrophils % (auto) 34.9 %
--- NOTE | 2022-09-22 12:26 | Discharge Summary ---
Date of Service September 22, 2022 Admission HPI Per Admitting Provider Dada is a 46-year-old male who presented to the [facility] yesterday and while at their facility had a 6-minute tonic-clonic seizure which was aborted with 2 mg of IM Ativan. Is a past medical history of epilepsy. Previously on Keppra, and missed several doses of but is not sure how many Pt is oriented to year 6 minutes x1 ativan 0940. "on depakote and a couple others. " Sees [facility] Dr. Santos Last seizure was a month ago. "Every once a while." Took his seizure medicines this week, thinks he took them last on Tuesday morning Was recently in the [facility]. Was there for depression. Denies SI/HI. Takes seroquel/abilify Sees Dr. Edge with [facility] Medical History: Reviewed Medications: Reviewed Surgical History: Reviewed Family history: Reviewed Allergies: Reviewed Social History: Rare etoh use. No marijuana. +cigarette use. 1.5 ppd. Code Status: Per external medication reconciliation has had medications filled from [facility], Olegario Edge, Jennifer Kennedy, Catalino Cohen Levocarnitine 330 mg (? For valproate induced hepatotoxicity?) Citalopram 40 mg daily Pravastatin 40 mg daily Zonisamide 100 mg capsules 112 prescribed for 28-day supply Lorazepam 0.5 mg 56 prescribed for 28-day supply Divalprox/Valproic Sodium 100 mg 56 prescribed for 28-day supply Montelukast 10 mg daily Aripiprazole 15 mg daily Fenofibrate 160 mg daily Seroquel 400 mg daily Levocetirizine 5 mg daily Lacosamide 200 mg 56 tablets prescribed for 28-day supply by [address] All above scripts were last filled 09/02/2022. Per [facility] review: Aripiprazole 15 mg once daily for depression on hold Atorvastatin 40 mg Celexa Arrived at the [facility] yesterday evening 2:12pm HS on 09/19. [phone] Liliam Moore prescribes meds per retirement. Corrie Moody. Suicidality - Vimpat recently increased to 200mg BID - Zonegran 200mg BID - Ativan 0.5 PO KASH BID Depakote ER 1000mg bedtime Aripiprazole was held, was going to resume 09/21 - Only took depakote last night Previously patient had been prescribed trazodone 50 mg, Synthroid 75 mg, and hydrocodoneacetaminophen these were last filled in 2021 without a recent for Principal Diagnosis seizure Discharge Exam The patient is awake, alert , lethargic HEENT--PERRL, EOMI, mucous membranes and oropharynx mildly dry Neck--supple. No JVD. No bruits. Thyroid normal, trachea midline, no adenopathy. Heart--normal S1 and S2. No murmurs, rubs or gallops. Lungs--clear bilaterally, no respiratory distress, no accessory muscle use. Abdomen--normal bowel sounds and soft. Mild epigastric and left sided abdominal pain Extremities--no cyanosis or clubbing. No edema. Dermatologic--normal skin turgor, normal color, no abnormal lymph nodes, no rash. Neurologic--cranial nerves II through XII grossly intact. Rheumatologic--normal range of motion. Psychiatric--normal affect. Discharge Data Allergies Allergy/AdvReac Type Severity Reaction Status Date / Time attapulgite [From Yesy] Allergy Unknown Unverified 09/20/22 12:47 grass pollen Allergy Unknown Unverified 09/20/22 12:47 Penicillins Allergy Unknown Unverified 09/20/22 12:47 strawberry Allergy Unknown Unverified 09/20/22 12:47 Consultations 09/20/22 12:13 ED Decision to Admit Stat 09/20/22 13:19 Consult Behavioral Health Liaison Routine 09/21/22 10:53 Consult Psychiatry Routine Ordered Studies 09/20/22 10:53 CT head/brain wo con Stat Hospital Course (1) Seizure: Seizure, acute with history of epilepsy Patient follows with [facility]. -Patient brought from the [facility], where he was taken on account of sucidal ideation, but started having multiple seizures Patient recently with Vimpat increased to 200 mg twice daily, Zonegran 200 mg twice daily, and Depakote ER 1000 mg at bedtime. According to sources, he did not take all his seizure medications upon arrival at [facility], only taking Depakote Patient reports has had around a seizure a month more recently Patient was admitted to the [facility] for severe depression with suicidality, patient denies suicidality today. Zonegran and Vimpat have been resumed Initially loaded with Keppra in the ER. -CT head did not show any acute pathology -No mores seizures overnight (2) History of suicidal behavior: Bipolar disorder, major depressive disorder, with suicidality Patient denies active SI/HI at admission, but was admitted to [facility] day prior with suicidality We will keep on suicide precautions at this time, behavioral health liaison consulted Right wrist with surface transverse cut, no overlying signs of cellulitis and no vascular compromise. Does not require suturing. Tdap status unknown, attempted to clarify from records, if gets from [place] do not confirm Tdap recommend giving a additional dose while inpatient -Patient to be evaluated by Psych before he goes back to the [facility] (3) Hypoxia: Now resolved (4) MDD (major depressive disorder): Plan d/c to [facility] Total Time Total Time Spent Total Time Spent (In Minutes): 35 Discharge Plan Discharge Items Patient Disposition: Transfer Detention Fac Reason For Visit: SEIZURE Discharge Diagnosis: seizure Activity: Resume your previous activity Non-emergency contact: Primary Care Provider, Neurologist and Psychiatrist Call non-emergency contact if: you have any medication questions Follow-up/Referrals: Kevin Edge MD [Primary Care Provider] - (Follow up is scheduled on October 06 1:30PM, with [facility]) Diet: Regular Addtl Attending Provider Instructions: please follow up with your regular doctors Pending Studies at Discharge: No Stand-Alone Forms: My [facility] Skilled Items Patient informed of condition?: Yes DNR: No Discharge Level of Care: Skilled Communicable Disease: No Discharge Prognosis: Stable Lines: None Urinary Catheter: No Medications and DC Order Prescriptions: Continued citalopram 40 mg tablet 40 mg PO DAILY Rx Instructions: 7 AM pravastatin 40 mg tablet 40 mg PO DAILY Rx Instructions: 7 AM levocarnitine 330 mg tablet 990 mg PO TID Rx Instructions: 900 MG AT 7 AM, 3PM AND 9PM zonisamide 100 mg capsule 200 mg PO BID Rx Instructions: 2 AT 7 AM AND 2 AT 8PM lorazepam 0.5 mg tablet 0.5 mg PO BID Rx Instructions: 7 AM AND 8 PM divalproex 500 mg tablet extended release 24 hr 1,000 mg PO HS montelukast 10 mg tablet 10 mg PO DAILY Rx Instructions: 7 AM fluticasone propionate 50 mcg/actuation spray,suspension 50 mcg INTRANASAL DAILY Rx Instructions: 7 AM aripiprazole 15 mg tablet 15 mg PO DAILY Rx Instructions: 7 AM fenofibrate 160 mg tablet 160 mg PO DAILY Rx Instructions: 7 AM quetiapine 400 mg tablet 400 mg PO DAILY Rx Instructions: 8 PM levocetirizine 5 mg tablet 5 mg PO DAILY Rx Instructions: 7 AM cholecalciferol (vitamin D3) 50 mcg (2,000 unit) capsule 50 mcg PO BID Rx Instructions: 7 AM AND 8PM lacosamide 200 mg tablet 200 mg PO BID Rx Instructions: 7 AM AND 8 PM Radha-Bid 1 billion cell- 250 mg tablet 1 tab PO DAILY Rx Instructions: 7 AM Discharge Orders: Discharge Order (Routine); Ordered 09/22/22 Ordered By: Dev Palmer Admission Data Admit Date/Time: 09/20/22 13:05 Attending Provider: Dev Palmer Admit Provider: Yusuf Sebastian Primary Care Provider: Kevin Edge Other Providers: Yusuf Sebastian ; Cristiane Charlton ; Nighat Iverson ; Delta Barrett Coding Level of Care Code 16338 INP/OBS DISCH >30 MIN Diagnoses Seizure R56.9 History of suicidal behavior Z91.51 Hypoxia R09.02 MDD (major depressive disorder) F32.9 Time Spent (min) 35
== END 2022-09-22 14:59 ==
LOC: ED 10:27 → 2S 10:27 → SUATTDRO 13:05 → 2S 14:15